=== PATIENT | male | born 1955 | race Caucasian/White ===

== ENCOUNTER 2019-07-27 01:07 | Emergency (ER) | payer BC, OTHER ==
[2019-07-27] MEDS ORDERED: TETANUS & DIPHTHERIA TOX,ADULT 0.5 ML VIAL ONE (01:38)
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
[2019-07-27] MEDS ORDERED: MORPHINE 4 MG/ML SYR ONE (02:14)
[2019-07-27] MEDS ORDERED: ONDANSETRON 4 MG (ODT) TAB ONE (02:14)
[2019-07-27 02:45] VITALS: BP 131/72; TEMP 97.5; O2SAT 97
== END 2019-07-27 02:38 | disposition short-term general hospital (02) ==
LOC: ER 01:07
DX: T20.00XA Burn of unspecified degree of head, face, and neck, unspecified site, initial encounter (principal); E78.5 Hyperlipidemia, unspecified; T54.3X1A Toxic effect of corrosive alkalis and alkali-like substances, accidental (unintentional), initial encounter; Y92.9 Unspecified place or not applicable; Z23 Encounter for immunization
CPT/HCPCS: 90471; 90714; 96372; 99285